=== PATIENT | male | born 1950 | race Caucasian/White ===

== ENCOUNTER → 2016-09-29 | Day surgery (SDC) | payer MEDICARE ==
[~2016-09-29] VITALS: Ht 170.2 cm; Wt 73.7 kg
[~2016-09-29] MED LIST: *RESP: ALBUTEROL 2.5 MG/3 ML NEB (PRN) PERIprocedural Use ONLY NEB ONE; ACETAMINOPHEN/HYDROcodone 325 MG/5 MG TAB PO PRN; INSULIN HUMAN REGULAR 1,000 UNITS/10 ML VIAL SQ PRN; LACTATED RINGER'S 1000 ML IV SCH; METOPROLOL TARTRATE 25 MG TAB PO PRN; MIDAZOLAM HCL 2 MG/2 ML VIAL ONE; MILK250C PO; MULTTAB67 PO; NORC5TAB PO; ONDANSETRON HCL 4 MG/2 ML VIAL IV PUSH PRN; OXYC1CAP PO; PROPOFOL 200 MG/20 ML AMP IV ONE; SODIUM CHLORID 0.9% 500 ML IV SCH; TAMS5CAP PO; ePHEDrine/NS 50 MG/5 ML SYR IV ONE
[2016-09-29 07:21] VITALS: BP 127/83; PULSE 73; RESP 16; TEMP 98.3; O2SAT 96
--- NOTE | 2016-09-29 07:43 | RADRPT ---
EXAM DATE/TIME: 09/29/2016 07:09 [place] COMPARISON: CT ABDOMEN & PELVIS W/O CONTRAST, September 08, 2016, 11:46. ABDOMEN KUB ONLY, June 27, 2015, 9:12 . INDICATIONS : Pre-op, lithotripsy. MEDICAL HISTORY : None. SURGICAL HISTORY : None. ENCOUNTER: Initial ACUITY: 1 day PAIN SCORE: 6/10 LOCATION: Left upper quadrant FINDINGS: Single supine frontal view of the abdomen demonstrates a 6 x 4 mm density overlying the left lower po le kidney. No abnormal densities are visualized overlying the right kidney but the right kidney is mo stly obscured by overlying bowel gas and stool. No abnormal densities are seen along the expected cou rse of the ureters or within the pelvis. Remaining visualized structures demonstrate no acute finding . CONCLUSION: There is a 6 x 4 mm density overlying the left lower pole kidney that may represent a renal stone. No other stones are visualized. Carl Cee MD on September 29, 2016 at 7:39 Board Certified Radiologist. This report was verified electronically.
[2016-09-29 10:49] VITALS: BP 109/68; PULSE 72; RESP 18; TEMP 97.5; O2SAT 96
--- NOTE | 2016-09-29 11:07 | EKG ---
Date Performed: 09/29/2016 Time Performed: 07:22:03 PTAGE: 66 years EKG: Sinus rhythm WITH SINUS ARRHYTHMIA NORMAL ECG PREVIOUS TRACING : 06/27/2015 09.25 Compared to prior tracing no significant change DOCTOR: Manuel Duran Interpretating Date/Time 09/29/2016 11:06:01
--- NOTE | 2016-09-29 11:21 | MP ---
cc: CORINE CHACON MD DATE OF SURGERY 09/29/2016 INDICATIONS FOR PROCEDURE This is the case of a pleasant 66-year-old gentleman with a 6 mm left lower pole renal calculus who presents today to undergo extracorporeal shockwave lithotripsy. PREOPERATIVE DIAGNOSIS A 6 mm left lower pole renal calculus. POSTOPERATIVE DIAGNOSIS A 6 mm left lower pole renal calculus. ATTENDING PHYSICIAN Dr. Chacon ANESTHESIA General PROCEDURE PERFORMED Extracorporeal shockwave lithotripsy of left lower pole renal calculus. COMPLICATIONS None ESTIMATED BLOOD LOSS None SPECIMENS None OPERATIVE PROCEDURE IN DETAIL The patient was brought to the operating room suite and placed supine on the lithotripsy table. The patient was then placed under general anesthesia. After an appropriate time-out was undertaken, I proceeded with localizing the left lower pole renal calculus with fluoroscopy. The patient next underwent extracorporeal shockwave lithotripsy using the Dawson-Piezolith device. The patient received a total of 2500 shocks with a maximum power level setting of 20. At conclusion of the procedure, the stone appeared well fragmented. The patient tolerated the procedure without complications and was transferred to the PACU in satisfactory condition. MD MICHAEL Schwartz/KATIE /9:24 AM /11:19 AM
== END | disposition home or self-care (01) ==
LOC: HSDC 06:40
PROVIDERS: ATTEND Urology
DX: N20.0 Calculus of kidney (principal); R39.15 Urgency of urination; B19.20 Unspecified viral hepatitis C without hepatic coma; Z01.810 Encounter for preprocedural cardiovascular examination; F17.200 Nicotine dependence, unspecified, uncomplicated
CPT/HCPCS: 50590; 74000; 93005; 94664; J2250; J7120; J7613